=== PATIENT | female | born 1955 | race Caucasian/White ===

== ENCOUNTER 2017-04-21 22:53 | Emergency (ER) | payer BC ==
[2017-04-22 02:18] VITALS: BP 120/75
== END 2017-04-22 02:18 | disposition home or self-care (01) ==
LOC: ED 22:53
DX: S00.03XA Contusion of scalp, initial encounter (principal); X58.XXXA Exposure to other specified factors, initial encounter; Y99.8 Other external cause status; Y93.9 Activity, unspecified; Y92.89 Other specified places as the place of occurrence of the external cause

== ENCOUNTER 2018-07-08 10:35 | Emergency (ER) | payer BC ==
[~2018-07-08] VITALS: Ht 157.5 cm; Wt 77.6 kg
[2018-07-08 10:37] VITALS: Ht 157.5 cm; Wt 77.6 kg
[2018-07-08 12:04] VITALS: BP 131/69
== END 2018-07-08 12:04 | disposition home or self-care (01) ==
LOC: ED 10:35
DX: S16.1XXA Strain of muscle, fascia and tendon at neck level, initial encounter (principal); Z98.890 Other specified postprocedural states; X58.XXXA Exposure to other specified factors, initial encounter; Y93.89 Activity, other specified; Y92.89 Other specified places as the place of occurrence of the external cause; Y99.8 Other external cause status
CPT/HCPCS: J1885